=== PATIENT | male | born 1990 | race American Indian/Alaskan Native ===

== ENCOUNTER 2017-06-09 22:06 | Emergency (ER) | payer SELFPAY ==
--- NOTE | 2017-06-09 23:16 | Emergency Department Report ---
HPI - General Time Seen by Provider: 06/09/17 22:55 - HPI HPI: This is a 27-year-old male presents to the emergency department via [facility] after he called after doing Tremaine. Allegedly he called his sister, who has to take care of him, and told her that he was in trouble. The patient says "my family gave up on me 3 years ago" but says that he stays with his sister and stepmother in a housing development nearby. The patient says that he is "special needs" but it appears to be that the patient's condition is that he has bipolar and takes Prozac. He denies any auditory or visual hallucinations or any homicidal or suicidal ideations at this time. ED Past Medical Hx - Medications Home Medications: Home Medications Medication Instructions Recorded Confirmed Last Taken Type FLUoxetine [PROzac] 20 mg PO QDAY 06/09/17 06/09/17 06/09/17 History ED Review of Systems ROS: Stated complaint: CHEST PAIN/DRUG USE Other details as noted in HPI Comment: All other systems reviewed and negative Constitutional: denies: chills, fever Eyes: denies: eye pain, eye discharge, vision change ENT: denies: ear pain, throat pain Respiratory: denies: cough, shortness of breath, wheezing Cardiovascular: denies: chest pain, palpitations Gastrointestinal: denies: abdominal pain, nausea, diarrhea Genitourinary: denies: urgency, dysuria Musculoskeletal: denies: back pain, joint swelling, arthralgia Skin: denies: rash, lesions Neurological: denies: headache, weakness, paresthesias Psychiatric: denies: auditory hallucinations, visual hallucinations, homicidal thoughts, suicidal thoughts Physical Exam - Physical Exam Physical Exam: GENERAL: The patient is well-developed well-nourished. HEENT: Normocephalic. Atraumatic. Extraocular motions are intact. Patient has moist mucous membranes. Pupils equal reactive to light bilaterally. NECK: Supple. Trachea is midline. CHEST/LUNGS: Clear to auscultation. There is no respiratory distress noted. HEART/CARDIOVASCULAR: Regular. There is no tachycardia. There is no gallop rub or murmur. ABDOMEN: Abdomen is soft, nontender. Patient has normal bowel sounds. There is no abdominal distention. SKIN: Skin is warm and dry. NEURO: The patient is awake, alert, and oriented. The patient is cooperative. The patient has no focal neurologic deficits. The patient has normal speech. MUSCULOSKELETAL: There is no tenderness or deformity. There is no limitation range of motion. There is no evidence of acute injury. PSYCH: Patient has some pressured speech. ED Medical Decision Making - Lab Data Result diagrams: 06/09/17 23:11 06/09/17 23:11 - EKG Data -: EKG Interpreted by Me EKG shows normal: sinus rhythm, axis, intervals, QRS complexes, ST-T waves Rate: normal - EKG Data When compared to previous EKG there are: previous EKG unavailable Interpretation: normal EKG - Medical Decision Making 27-year-old male with a history of bipolar disorder presents after saying that he took tremaine and drink alcohol. Patient shows some confusion at first. Upon arrival to the emergency department he is slightly combative. Labs show a blood alcohol level of 0.33. An IV was placed and the patient will receive IV fluids, multivitamin and thiamine. Urine drug screen is negative. There is no signs of rhabdomyolysis. The rest of the labs are unremarkable. Vital signs stable throughout his ED course. He was made a 1013 secondary to his initial combative behavior and some of his confusion which could be psychosis. However most likely the patient is intoxicated from alcohol and possibly other illicit drugs. He will remain in the emergency department until his blood alcohol level is at a much more reasonable and/or sober level so he can be better assessed for intoxication versus psychosis. - Differential Diagnosis bipolar disorder, schizophrenia, substance abuse Critical Care Time: No Critical care attestation.: If time is entered above; I have spent that time in minutes in the direct care of this critically ill patient, excluding procedure time. ED Disposition Clinical Impression: History of bipolar disorder Psychosis Qualifiers: Psychosis type: unspecified psychosis type Qualified Code(s): F29 - Unspecified psychosis not due to a substance or known physiological condition Alcohol intoxication Qualifiers: Complication of substance-induced condition: uncomplicated Qualified Code(s): F10.920 - Alcohol use, unspecified with intoxication, uncomplicated Disposition: DC/TX-65 PSY HOSP/PSY UNIT Is pt being admited?: No Condition: Stable Referrals: PRIMARY CARE, [Primary Care Provider] - 3-5 Days Time of Disposition: 01:39
[2017-06-09 23:52] LABS: Basophils % (Auto) 0.5 % (0.0-1.8); Eosinophils % (Auto) 2.8 % (0.0-4.3); Hemoglobin 13.7 gm/dl (11.8-15.2); Mean Corpuscular HGB Conc 33 % (32-34); Mean Corpuscular Hemoglobin 28 pg (28-32); Mean Corpuscular Volume 85 fl (84-94); Platelet Count 255 K/mm3 (140-440); Red Blood Count 4.86 M/mm3 (3.65-5.03); Red Cell Distribution Width 13.5 % (13.2-15.2); White Blood Count 7.8 K/mm3 (4.5-11.0)
[2017-06-09 23:53] LABS: Urine Drugs of Abuse Note Disclamer
[2017-06-10 00:03] LABS: Bilirubin,Urine NEG (Negative); Blood,Urine LG (Negative); Ketones,Urine NEG (Negative); Leukocyte Esterase,Urine NEG (Negative); Nitrite,Urine NEG (Negative); Protein,Urine <15 mg/dL mg/dL (Negative); Urobilinogen,Urine < 2.0 mg/dL (<2.0)
[2017-06-10 00:06] LABS: RBC,Urine < 1.0 /HPF (0.0-6.0); WBC,Urine < 1.0 /HPF (0.0-6.0)
[2017-06-10 00:10] LABS: Alanine Aminotransferase 102 units/L (7-56); Albumin 4.7 g/dL (3.9-5); Albumin/Globulin Ratio 1.5 %; Alkaline Phosphatase 76 units/L (35-129); Anion Gap 22 mmol/L; BUN/Creatinine Ratio 14.28; Blood Urea Nitrogen 10 mg/dL (9-20); Calcium 9.7 mg/dL (8.4-10.2); Carbon Dioxide 20 mmol/L (22-30); Chloride 105.7 mmol/L (98-107); Glucose 107 mg/dL (75-100); Potassium 4.2 mmol/L (3.6-5.0); Sodium 143 mmol/L (137-145); Total Protein 7.8 g/dL (6.3-8.2)
[2017-06-10] MEDS ORDERED: NACL 0.9% 1000 ML 1,000 ML IV ONE (01:03)
[2017-06-10] MEDS ORDERED: VITAMIN B-1 100 MG, FOLVITE 1 MG, INFUVITE 10 ML in NACL 0.9% 1000 ML 1,000 ML IV ONE (01:03)
--- NOTE | 2017-06-10 03:34 | Ultrasound Report ---
FINAL REPORT PROCEDURE: US ABDOMEN LIMITED TECHNIQUE: Real-time sonography in multiple planes of the gallbladder fossa and CBD with imaging of the adjacent liver, pancreas, and right kidney was performed with image documentation. CPT 96679 HISTORY: RUQ US. Elevated LFTs COMPARISON: No prior studies are available for comparison. FINDINGS: Liver: Normal size and echotexture with no evidence of cystic or solid mass lesion. Gallbladder: Fluid filled. No gallstones, wall thickening, pericholecystic fluid, or sonographic Zaldivar's sign . Intrahepatic bile ducts: Normal . Extrahepatic bile ducts: Normal . Pancreas: Normal as visualized with suboptimal depiction of the pancreatic tail. Right kidney: Normal echotexture. No focal renal mass, calculus, or hydronephrosis. Other: No free fluid. IMPRESSION: Normal Examination
[2017-06-10 07:59] VITALS: BP 107/54
[2017-06-10] MEDS ORDERED: PROzac PO SCH (10:00)
--- NOTE | 2017-06-10 19:02 | Consultation ---
History of Present Illness - Reason for Consult Reason for consult: psych consult - Chief Complaint Chief complaint: Cc: I just got drunk Patient is a 27 year old BM with prior psych history of SCPT. Patient notes that he has recently left the inpt unit and has been compliant with his meds. However, he decided to get drunk last night. He notes that it must have led to him calling the police and saying something that precipitated him being admitted on a 1013 to [facility]. Patient is unable to recollect the events after drinking. He currently notes that hes simply trying to sleep off the hangover. He denies any SI/HI/AH/VH. No depression or euphoria or psychosis. Per collateral patient was combative when he arrived in the ER. He presented with psychosis and had been using tremaine. 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 Patient recently used etoh and presented to [facility] drunk and combative. Patient notes that his psychosis is at baseline and that he would have needed to come here had it not been for him getting drunk DX: SCPT, ETOH abuse- severe no withdrawal Plan: Psychosis: Restart his outpatient meds for his psychosis once determined what he's on. Obtain collateral to determine if psychosis indeed has been stable ETOH: observe for withdrawal- place on CIWA Medications and Allergies Allergies Allergy/AdvReac Type Severity Reaction Status Date / Time No Known Allergies Allergy Verified 06/09/17 23:27 Home Medications Medication Instructions Recorded Confirmed Last Taken Type FLUoxetine [PROzac] 20 mg PO QDAY 06/09/17 06/09/17 06/09/17 History Active Meds: Active Medications Fluoxetine HCl (Prozac) 20 mg PO DAILY MARCUS Stop: 06/14/17 09:59 Last Admin: 06/10/17 10:36 Dose: 20 mg Mental Status Exam - Vital signs Last Vital Signs Temp 97.7 F 06/10/17 07:40 Pulse 74 06/10/17 07:40 Resp 18 06/10/17 07:59 BP 107/54 06/10/17 07:40 Pulse Ox 99 06/10/17 07:59 Results Result Diagrams: 06/09/17 23:11 06/09/17 23:11 Abnormal lab results 06/09/17 06/09/17 06/09/17 Range/Units 23:03 23:11 23:11 Lymph % (Auto) 40.4 H (13.4-35.0) % Carbon Dioxide 20 L (22-30) mmol/L Creatinine 0.7 L (0.8-1.5) mg/dL Glucose 107 H (75-100) mg/dL AST 61 H (5-40) units/L ALT 102 H (7-56) units/L Total Creatine Kinase (55-170) units/L Ur Specific [place] 1.002 L (1.003-1.030) Salicylates (2.8-20.0) mg/dL Plasma/Serum Alcohol (0-0.07) gm% 06/09/17 06/09/17 06/10/17 Range/Units 23:11 23:11 01:05 Lymph % (Auto) (13.4-35.0) % Carbon Dioxide (22-30) mmol/L Creatinine (0.8-1.5) mg/dL Glucose (75-100) mg/dL AST (5-40) units/L ALT (7-56) units/L Total Creatine Kinase 296 H (55-170) units/L Ur Specific [place] (1.003-1.030) Salicylates < 0.3 L (2.8-20.0) mg/dL Plasma/Serum Alcohol 0.33 H (0-0.07) gm% 06/10/17 Range/Units 18:20 Lymph % (Auto) (13.4-35.0) % Carbon Dioxide (22-30) mmol/L Creatinine (0.8-1.5) mg/dL Glucose (75-100) mg/dL AST (5-40) units/L ALT (7-56) units/L Total Creatine Kinase (55-170) units/L Ur Specific [place] (1.003-1.030) Salicylates (2.8-20.0) mg/dL Plasma/Serum Alcohol 0.08 H (0-0.07) gm% All other labs normal.
--- NOTE | 2017-06-10 19:57 | Event Note ---
Date: 06/10/17 The patient is reassessed. He is not homicidal or suicidal. He denies hallucinations. He denies access to guns and firearms. He is alert and oriented 3, walks with a steady gait, and is clinically sober at this time. I have contacted the patient's brother for collateral information and [phone] ( [employer]) and he indicates that he is not concerned about the patient hurting himself or hurting other people, and he indicates that he will be present for the patient as a support system. Patient is seen in conjunction with Mary Light of the crisis team, and she agrees that the patient is suitable for discharge from a mental health standpoint. The patient is instructed to discontinue alcohol consumption. Vital Signs 06/09/17 06/10/17 06/10/17 23:19 07:40 07:59 Temperature 97.6 F 97.7 F Pulse Rate 102 H 74 Respiratory 18 18 18 Rate Blood Pressure 140/63 107/54 [Left] O2 Sat by Pulse 98 99 99 Oximetry Lab Results 06/09/17 06/09/17 06/09/17 Range/Units 23:03 23:03 23:11 WBC 7.8 (4.5-11.0) K/mm3 RBC 4.86 (3.65-5.03) M/mm3 Hgb 13.7 (11.8-15.2) gm/dl Hct 41.0 (35.5-45.6) % MCV 85 (84-94) fl MCH 28 (28-32) pg MCHC 33 (32-34) % RDW 13.5 (13.2-15.2) % Plt Count 255 (140-440) K/mm3 Lymph % (Auto) 40.4 H (13.4-35.0) % [place] % (Auto) 5.4 (0.0-7.3) % Eos % (Auto) 2.8 (0.0-4.3) % Baso % (Auto) 0.5 (0.0-1.8) % Lymph # 3.1 (1.2-5.4) K/mm3 [place] # 0.4 (0.0-0.8) K/mm3 Eos # 0.2 (0.0-0.4) K/mm3 Baso # 0.0 (0.0-0.1) K/mm3 Seg Neutrophils % 50.9 (40.0-70.0) % Seg Neutrophils # 4.0 (1.8-7.7) K/mm3 Sodium (137-145) mmol/L Potassium (3.6-5.0) mmol/L Chloride (98-107) mmol/L Carbon Dioxide (22-30) mmol/L Anion Gap mmol/L BUN (9-20) mg/dL Creatinine (0.8-1.5) mg/dL Estimated GFR ml/min BUN/Creatinine Ratio % Glucose (75-100) mg/dL Calcium (8.4-10.2) mg/dL Total Bilirubin (0.1-1.2) mg/dL AST (5-40) units/L ALT (7-56) units/L Alkaline Phosphatase (35-129) units/L Total Creatine Kinase (55-170) units/L Total Protein (6.3-8.2) g/dL Albumin (3.9-5) g/dL Albumin/Globulin Ratio % Urine Color Straw (Yellow) Urine Turbidity Clear (Clear) Urine pH 6.0 (5.0-7.0) Ur Specific [place] 1.002 L (1.003-1.030) Urine Protein <15 mg/dl (Negative) mg/dL Urine Glucose (UA) Neg (Negative) mg/dL Urine Ketones Neg (Negative) mg/dL Urine Blood Lg (Negative) Urine Nitrite Neg (Negative) Urine Bilirubin Neg (Negative) Urine Urobilinogen < 2.0 (<2.0) mg/dL Ur Leukocyte Esterase Neg (Negative) Urine WBC (Auto) < 1.0 (0.0-6.0) /HPF Urine RBC (Auto) < 1.0 (0.0-6.0) /HPF Salicylates (2.8-20.0) mg/dL Urine Opiates Screen Presumptive negative Urine Methadone Screen Presumptive negative Acetaminophen (10.0-30.0) ug/mL Ur Barbiturates Screen Presumptive negative Ur Phencyclidine Scrn Presumptive negative Ur Amphetamines Screen Presumptive negative U Benzodiazepines Scrn Presumptive negative Urine Cocaine Screen Presumptive negative U Marijuana (THC) Screen Presumptive negative Drugs of Abuse Note Disclamer Plasma/Serum Alcohol (0-0.07) gm% 06/09/17 06/09/17 06/09/17 Range/Units 23:11 23:11 23:11 WBC (4.5-11.0) K/mm3 RBC (3.65-5.03) M/mm3 Hgb (11.8-15.2) gm/dl Hct (35.5-45.6) % MCV (84-94) fl MCH (28-32) pg MCHC (32-34) % RDW (13.2-15.2) % Plt Count (140-440) K/mm3 Lymph % (Auto) (13.4-35.0) % [place] % (Auto) (0.0-7.3) % Eos % (Auto) (0.0-4.3) % Baso % (Auto) (0.0-1.8) % Lymph # (1.2-5.4) K/mm3 [place] # (0.0-0.8) K/mm3 Eos # (0.0-0.4) K/mm3 Baso # (0.0-0.1) K/mm3 Seg Neutrophils % (40.0-70.0) % Seg Neutrophils # (1.8-7.7) K/mm3 Sodium 143 (137-145) mmol/L Potassium 4.2 (3.6-5.0) mmol/L Chloride 105.7 (98-107) mmol/L Carbon Dioxide 20 L (22-30) mmol/L Anion Gap 22 mmol/L BUN 10 (9-20) mg/dL Creatinine 0.7 L (0.8-1.5) mg/dL Estimated GFR > 60 ml/min BUN/Creatinine Ratio 14.28 % Glucose 107 H (75-100) mg/dL Calcium 9.7 (8.4-10.2) mg/dL Total Bilirubin 0.40 (0.1-1.2) mg/dL AST 61 H (5-40) units/L ALT 102 H (7-56) units/L Alkaline Phosphatase 76 (35-129) units/L Total Creatine Kinase (55-170) units/L Total Protein 7.8 (6.3-8.2) g/dL Albumin 4.7 (3.9-5) g/dL Albumin/Globulin Ratio 1.5 % Urine Color (Yellow) Urine Turbidity (Clear) Urine pH (5.0-7.0) Ur Specific [place] (1.003-1.030) Urine Protein (Negative) mg/dL Urine Glucose (UA) (Negative) mg/dL Urine Ketones (Negative) mg/dL Urine Blood (Negative) Urine Nitrite (Negative) Urine Bilirubin (Negative) Urine Urobilinogen (<2.0) mg/dL Ur Leukocyte Esterase (Negative) Urine WBC (Auto) (0.0-6.0) /HPF Urine RBC (Auto) (0.0-6.0) /HPF Salicylates < 0.3 L (2.8-20.0) mg/dL Urine Opiates Screen Urine Methadone Screen Acetaminophen < 15.0 (10.0-30.0) ug/mL Ur Barbiturates Screen Ur Phencyclidine Scrn Ur Amphetamines Screen U Benzodiazepines Scrn Urine Cocaine Screen U Marijuana (THC) Screen Drugs of Abuse Note Plasma/Serum Alcohol (0-0.07) gm% 06/09/17 06/10/17 06/10/17 Range/Units 23:11 01:05 18:20 WBC (4.5-11.0) K/mm3 RBC (3.65-5.03) M/mm3 Hgb (11.8-15.2) gm/dl Hct (35.5-45.6) % MCV (84-94) fl MCH (28-32) pg MCHC (32-34) % RDW (13.2-15.2) % Plt Count (140-440) K/mm3 Lymph % (Auto) (13.4-35.0) % [place] % (Auto) (0.0-7.3) % Eos % (Auto) (0.0-4.3) % Baso % (Auto) (0.0-1.8) % Lymph # (1.2-5.4) K/mm3 [place] # (0.0-0.8) K/mm3 Eos # (0.0-0.4) K/mm3 Baso # (0.0-0.1) K/mm3 Seg Neutrophils % (40.0-70.0) % Seg Neutrophils # (1.8-7.7) K/mm3 Sodium (137-145) mmol/L Potassium (3.6-5.0) mmol/L Chloride (98-107) mmol/L Carbon Dioxide (22-30) mmol/L Anion Gap mmol/L BUN (9-20) mg/dL Creatinine (0.8-1.5) mg/dL Estimated GFR ml/min BUN/Creatinine Ratio % Glucose (75-100) mg/dL Calcium (8.4-10.2) mg/dL Total Bilirubin (0.1-1.2) mg/dL AST (5-40) units/L ALT (7-56) units/L Alkaline Phosphatase (35-129) units/L Total Creatine Kinase 296 H (55-170) units/L Total Protein (6.3-8.2) g/dL Albumin (3.9-5) g/dL Albumin/Globulin Ratio % Urine Color (Yellow) Urine Turbidity (Clear) Urine pH (5.0-7.0) Ur Specific [place] (1.003-1.030) Urine Protein (Negative) mg/dL Urine Glucose (UA) (Negative) mg/dL Urine Ketones (Negative) mg/dL Urine Blood (Negative) Urine Nitrite (Negative) Urine Bilirubin (Negative) Urine Urobilinogen (<2.0) mg/dL Ur Leukocyte Esterase (Negative) Urine WBC (Auto) (0.0-6.0) /HPF Urine RBC (Auto) (0.0-6.0) /HPF Salicylates (2.8-20.0) mg/dL Urine Opiates Screen Urine Methadone Screen Acetaminophen (10.0-30.0) ug/mL Ur Barbiturates Screen Ur Phencyclidine Scrn Ur Amphetamines Screen U Benzodiazepines Scrn Urine Cocaine Screen U Marijuana (THC) Screen Drugs of Abuse Note Plasma/Serum Alcohol 0.33 H 0.08 H (0-0.07) gm%
== END 2017-06-10 20:15 | disposition home or self-care (01) ==
LOC: ED 22:06 → EEVIPCON 22:06 → ED 06-10 20:15
DX: F29 Unspecified psychosis not due to a substance or known physiological condition (principal); F10.920 Alcohol use, unspecified with intoxication, uncomplicated; F31.9 Bipolar disorder, unspecified
CPT/HCPCS: 36415; 76705; 80053; 80307; 81001; 82550; 85025; 93005; 93010; 96365; 96366; 99285; G0480; J3411; J7030; 80320